=== PATIENT | male | born 1935 | race Caucasian/White ===

== ENCOUNTER 2017-08-29 12:36 | Emergency (ER) | payer MEDICARE, BC ==
[2017-08-29] MEDS ORDERED: ASPIRIN 325 MG TABLET PO ONE (12:52)
[2017-08-29] MEDS ORDERED: DILTIAZEM 25MG/5ML VIAL IV ONE (13:01)
[2017-08-29 13:08] LABS: BASO % 0.6 % (0-6); EOS % 1.3 % (0-6); GRAN % 74.3 % (47-80); HEMATOCRIT 33.6 % (42.0-52.0); HEMOGLOBIN 11.2 gm/dl (14.0-18.0); LYMPH % 11.4 % (16-45); MEAN CELL VOLUME 93.1 fl (81-97); MEAN CORPUSCULAR HGB CONC 33.3 g/dl (32-36); MEAN PLATELET VOLUME 11.2 fl (7.4-10.4); MONO % 12.4 % (0-9); PLATELET COUNT 274 K/uL (130-400); RED BLOOD COUNT 3.61 M/uL (4.40-5.70); RED CELL DISTRIBUTION WIDTH 14.8 % (11.5-14.5)
--- NOTE | 2017-08-29 13:09 | Emergency Department Record ---
History of Present Illness - General Chief Complaint: Shortness of breath Stated Complaint: SHAKY,SOB Time Seen by Provider: 08/29/17 12:52 Source: Patient, Family, EMS Mode of Arrival: EMS Limitations: No limitations - History of Present Illness Initial Comments: 82 yo male presents with weakness the last few days that is progressing. Today he had a 1pm appointment with his doctor schedules but felt too weak to go to the appointment. He called EMS. He denies and syncope or chest pain. He feels very frail and weak and shaky. EMS noted a variable HR that was tachycardic. No edema. The patient states he has had an irregular HR in the past. He denies and NVD. He has had a decrease in appetite. PCP Amy. Onset/Timin -: Days(s) Quality: Other (weakness) Consistency: Constant Improves With: Rest Worsens With: Exertion, Movement Associated Symptoms: Denies other symptoms Treatments Prior to Arrival: None - Related Data Allergies Allergy/AdvReac Type Severity Reaction Status Date / Time infliximab [From REMICADE] Allergy Unknown PT UNSURE Verified 08/29/17 12:38 OF REACTION Penicillins [PENICILLINS] Allergy Unknown HIVES Verified 08/29/17 12:38 Travel Screening - Travel/Exposure Within Last 30 Days Have you traveled within the last 30 days?: No Review of Systems Constitutional: Reports: Malaise, Weakness. Denies: Chills, Fever Eyes: Denies: Eye discharge, Eye pain, Photophobia, Vision change ENT: Denies: Congestion, Throat pain Respiratory: Denies: Cough, Dyspnea, Hemoptysis, Stridor, Wheezes Cardiovascular: Denies: Chest pain, Palpitations, Syncope Endocrine: Reports: Fatigue. Denies: Polydipsia, Polyuria Gastrointestinal: Denies: Abdominal pain, Diarrhea, Nausea, Vomiting Genitourinary: Denies: Dysuria, Frequency, Hematuria Musculoskeletal: Denies: Arthralgia, Back pain, Joint swelling, Myalgia Skin: Denies: Bruising, Change in color, Rash Neurological: Reports: Tremors (feels shaky). Denies: Confusion, Headache, Numbness, Paresthesias, Vertigo, Weakness Psychiatric: Denies: Anxiety Hematological/Lymphatic: Denies: Anemia, Blood Clots, Easy bleeding, Easy bruising, Swollen glands Past Medical History - SOCIAL HISTORY Smoking Status: Former smoker Alcohol Use: None Drug Use: None - RESPIRATORY Hx Respiratory Disorders: No - CARDIOVASCULAR Hx Cardio Disorders: Yes Hx Edema: Yes (HUMBERTO LOWER LEGS) Hx Hypertension: Yes Hx Irregular Heartbeat: Yes (AFIB) - NEURO Hx Neuro Disorders: No - GI Hx GI Disorders: Yes Hx GI Bleed: Yes - Hx Genitourinary Disorders: Yes Hx Bladder Problem: Yes - ENDOCRINE Hx Endocrine Disorders: No - MUSCULOSKELETAL Hx Musculoskeletal Disorders: Yes Hx Arthritis: Yes - PSYCH Hx Psych Problems: No - HEMATOLOGY/ONCOLOGY Hx Hematology/Oncology Disorders: Yes Hx Cancer: Yes (skin) Hx Chemotherapy: No Hx Radiation Therapy: No Family Medical History Any Significant Family History?: Yes Hx HTN: Father, Brother/Sister Physical Exam - General General Appearance: Alert, Oriented x3, Cooperative, No acute distress Limitations: No limitations - Head Head exam: Atraumatic, Normocephalic, Normal inspection - Eye Eye exam: Normal appearance, PERRL. negative: Conjunctival injection, Scleral icterus - ENT ENT exam: Normal exam, Mucous membranes moist Ear exam: negative: Normal external inspection Nasal Exam: negative: Normal inspection Mouth exam: negative: Normal external inspection Teeth exam: negative: Normal inspection - Neck Neck exam: Normal inspection, Full ROM. negative: Tenderness - Respiratory Respiratory exam: Normal lung sounds bilaterally. negative: Prolonged expiratory, Respiratory distress, Rhonchi, Stridor, Wheezes - Cardiovascular Cardiovascular Exam: Irregular rhythm, Tachycardia. negative: Regular rate, Normal rhythm, Normal heart sounds, Diastolic murmur, Systolic murmur Peripheral Pulses: 2+: Radial (R), Radial (L) - GI/Abdominal GI/Abdominal exam: Soft. negative: Tenderness - Rectal Rectal exam: Deferred - exam: Deferred - Extremities Extremities exam: Pedal edema (trace). negative: Full ROM, Joint swelling, Tenderness - Back Back exam: Reports: Normal inspection, Full ROM. Denies: Muscle spasm, Rash noted, Tenderness - Neurological Neurological exam: Alert, Normal gait, Oriented X3 - Psychiatric Psychiatric exam: Normal affect, Normal mood - Skin Skin exam: Dry, Intact, Normal color, Warm Course Vital Signs 08/29/17 12:40 Temperature 97.6 F Pulse Rate 173 H Respiratory 20 Rate Blood Pressure 147/91 Pulse Ox 98 - Reevaluation(s) Reevaluation #1: EKG 12:56 supraventricular tachycardia, rate 157, axis left, ST lateral depression, intervals QTc 568 08/29/17 13:07 08/29/17 14:25 The labs were reviewed The Troponin is elevated at 0.053 The BNP is elevated at 2997 The KCL is 3.2 The CXR is negative for acute process I SW DR Balderas at [facility] [place] She accepts the patient for transfer for further work up and cardiology consultation The HR is improved at this time to 100-115 The onset is unknown for the atrial fibrillation so Heparin was ordered 08/29/17 14:35 Medical Decision Making - Lab Data Result diagrams: 08/29/17 12:55 08/29/17 12:55 Disposition Disposition: Transfer Clinical Impression: Atrial fibrillation with RVR Disposition: Acute Care Hospital Transfer Transfer To: [facility] [place] Reason For Transfer: atrial fibrillation with RVR Accepting Physician: Andrey Time Discussed w/Accepting Physician: 14:37 Condition: (2) Stable Forms: Patient Portal Access Time of Disposition: 14:37 Quality - Quality Measures Quality Measures: N/A - Blood Pressure Screening Does Patient Have Any of the Following: No Blood Pressure Classification: Hypertensive Reading Systolic Measurement: 147 Diastolic Measurement: 91 Screening for High Blood Pressure: < Pre-Hypertensive BP, F/U Documented > [ G8950] Pre-Hypertensive Follow-up Interventions: Referral to alternative/primary care provider.
[2017-08-29] MEDS ORDERED: DILTIAZEM HCL 125 MG in 0.9 % SODIUM CHLORIDE 100ML 100 ML IV SCH (13:15)
[2017-08-29 13:16] LABS: BLOOD UREA NITROGEN 11 mg/dL (8-23); CREATININE 0.8 mg/dL (0.7-1.2); EST GLOMERULAR FILTRATION RATE > 60 mL/min
[2017-08-29 13:17] LABS: TOTAL PROTEIN 7.5 g/dL (6.6-8.7)
[2017-08-29 13:19] LABS: GLUCOSE,RANDOM 109 mg/dL (74-109)
[2017-08-29 13:21] LABS: INR 0.97; PROTHROMBIN TIME (PATIENT) 10.5 SECONDS (9.5-12.1)
[2017-08-29 13:22] LABS: ALB/GLOB RATIO 0.9 (1.1-1.8); ALBUMIN 3.6 g/dL (4.0-5.0); ALKALINE PHOSPHATASE 69 U/L (40-129); ALT/SGPT 15 U/L (<41); AST/SGOT 29 U/L (10.0-50.0); CREATINE PHOSPHOKINASE 108 U/L (39-308)
[2017-08-29 13:26] LABS: CKMB 5.5 ng/mL (<6.73)
[2017-08-29] MEDS ORDERED: HEPARIN SODIUM 1000 UNIT/1 ML 10ML VIAL IVP ONE (14:24)
[2017-08-29] MEDS ORDERED: SOD CHLOR 0.9% WITH KCL 40MEQ 40 MEQ/1,000 ML IV.SOLN IV SCH (14:30)
[2017-08-29] MEDS ORDERED: HEPARIN SODIUM/D5W 25,000 UNITS/500 ML BAG IV SCH (14:30)
--- NOTE | 2017-08-30 07:38 | RADIOLOGY REPORT ---
EXAM: CHEST, FRONTAL VIEW HISTORY: DIFFICULTY BREATHING. TECHNIQUE: A portable frontal view of the chest was obtained. Comparison: 04/05/15 chest. FINDINGS: Stable cardiomegaly. Atheromatous change of the thoracic aorta. Osteopenia. The lungs are clear. No pneumothorax. IMPRESSION: CARDIOMEGALY. NO ACUTE CARDIOPULMONARY PROCESS. JOB NUMBER: [id number] MTDD
== END 2017-08-29 16:52 | disposition short-term general hospital (02) ==
LOC: ER 12:36
DX: I48.0 Paroxysmal atrial fibrillation (principal); R06.00 Dyspnea, unspecified; R53.1 Weakness; I10 Essential (primary) hypertension; Z87.891 Personal history of nicotine dependence
CPT/HCPCS: 71010; 80053; 82550; 82553; 83880; 84484; 85025; 85610; 85730; 93005; 93010; 96365; 96366; 96375; 99285

== ENCOUNTER 2017-12-27 23:23 | Emergency (ER) | payer MEDICARE, BC ==
[2017-12-27] MEDS ORDERED: TOPICAL LIDOCAINE W/ EPI 5 ML TOP ONE (23:28)
--- NOTE | 2017-12-27 23:38 | Emergency Department Record ---
History of Present Illness - General Chief Complaint: Wound, puncture Stated Complaint: BIT TOUNGE Time Seen by Provider: 12/27/17 23:23 Source: Patient Mode of Arrival: Ambulatory Limitations: No limitations - History of Present Illness Initial Commments: 82 yo male presents to ED for evaluation of an area of bleeding to the right anterior tongue for the past 2 hours, denies specific injury, but has not been able to get the bleeding to stop at home. Patient does take Xarelto for atrial fibrillation resulting in impaired coagulation. Patient also reports worsening pain/stiffness and swelling to the left wrist over the past several days, denies injury, but does report a history of RA and believes he may be having a flare-up of his arthritis symptoms. Onset/Timin -: Hour(s) Location: Other Place: Home Context: Accidental Associated Symptoms: None Treatments Prior to Arrival: Bandage - [place] Coma Scale Eye Response: (4) Open spontaneously Motor Response: (6) Obeys commands Verbal Response: (5) Oriented [place] Total: 15 - Related Data Home Medications Medication Instructions Recorded Confirmed Last Taken Amiodarone HCl [Pacerone] 200 mg PO DAILY 12/27/17 12/27/17 Unknown Folic Acid 1 mg PO DAILY 12/27/17 12/27/17 Unknown Hydralazine HCl 100 mg PO TID 12/27/17 12/27/17 Unknown Latanoprost 0.005% Opth Divya 1 drop OPTH DAILY 12/27/17 12/27/17 Unknown [Xalatan] Rivaroxaban [Xarelto] 20 mg PO QPM 12/27/17 12/27/17 Unknown Previous Rx's Medication Instructions Recorded Prednisone [Prednisone 10Mg] 10 mg PO DAILY #15 tab 12/28/17 Allergies Allergy/AdvReac Type Severity Reaction Status Date / Time infliximab [From REMICADE] Allergy Unknown PT UNSURE Verified 08/29/17 12:38 OF REACTION Penicillins [PENICILLINS] Allergy Unknown HIVES Verified 08/29/17 12:38 Travel Screening - Travel/Exposure Within Last 30 Days Have you traveled within the last 30 days?: No - Travel Symptoms Symptom Screening: None Review of Systems Constitutional: Denies: Chills, Fever, Malaise, Night sweats Eyes: Denies: Eye discharge, Eye pain ENT: Reports: Other (Tongue injury). Denies: Congestion, Ear pain, Epistaxis Respiratory: Denies: Cough, Dyspnea Cardiovascular: Denies: Chest pain, Dyspnea on exertion Endocrine: Denies: Fatigue, Heat or cold intolerance Gastrointestinal: Denies: Abdominal pain, Vomiting Genitourinary: Denies: Incontinence, Retention Musculoskeletal: Denies: Arthralgia, Back pain, Gout, Joint swelling Skin: Denies: Bruising, Change in color Neurological: Denies: Abnormal gait, Confusion, Headache, Seizure Psychiatric: Denies: Anxiety Hematological/Lymphatic: Reports: Easy bleeding, Easy bruising. Denies: Anemia , Blood Clots Past Medical History - SOCIAL HISTORY Smoking Status: Former smoker - RESPIRATORY Hx Respiratory Disorders: No - CARDIOVASCULAR Hx Cardio Disorders: Yes Hx Edema: Yes (HUMBERTO LOWER LEGS) Hx Hypertension: Yes Hx Irregular Heartbeat: Yes (AFIB) - NEURO Hx Neuro Disorders: No - GI Hx GI Disorders: Yes Hx GI Bleed: Yes - Hx Genitourinary Disorders: Yes Hx Bladder Problem: Yes - ENDOCRINE Hx Endocrine Disorders: Yes Hx Thyroid Disease: Yes - MUSCULOSKELETAL Hx Musculoskeletal Disorders: Yes Hx Arthritis: Yes - PSYCH Hx Psych Problems: No - HEMATOLOGY/ONCOLOGY Hx Hematology/Oncology Disorders: Yes Hx Cancer: Yes (skin) Hx Chemotherapy: No Hx Radiation Therapy: No Family Medical History Any Significant Family History?: Yes Hx HTN: Father, Brother/Sister Physical Exam - General General Appearance: Alert, Oriented x3, Cooperative, Mild distress Limitations: No limitations - Head Head exam: Atraumatic, Normocephalic, Normal inspection Head exam detail: negative: Abrasion, Contusion, Villeda's sign, General tenderness, Hematoma, Laceration - Eye Eye exam: Normal appearance. negative: Conjunctival injection, Periorbital swelling, Periorbital tenderness, Scleral icterus - ENT Ear exam: negative: Auricular hematoma, Auricular trauma Nasal Exam: negative: Active bleeding, Discharge, Dried blood, Foreign body Mouth exam: Other (Very small area of bleeding to the right anterior tongue, no laceration is present.). negative: Drooling, Laceration, Tongue elevation, Tongue normal - Neck Neck exam: Normal inspection. negative: Meningismus, Tenderness - Respiratory Respiratory exam: Normal lung sounds bilaterally. negative: Rales, Respiratory distress, Rhonchi, Stridor - Cardiovascular Cardiovascular Exam: Regular rate, Normal rhythm, Normal heart sounds - GI/Abdominal GI/Abdominal exam: Soft. negative: Rebound, Rigid, Tenderness - Rectal Rectal exam: Deferred - exam: Deferred - Extremities Extremities exam: Tenderness (Swelling and decreased AROM to the left wrist on examination, strong distal raidal pulse, compartments are soft on examination.) . negative: Calf tenderness, Pedal edema - Back Back exam: Denies: CVA tenderness (R), CVA tenderness (L) - Neurological Neurological exam: Alert, Normal gait, Oriented X3 - Psychiatric Psychiatric exam: Normal affect, Normal mood - Skin Skin exam: Normal color. negative: Abrasion Type of lesion: negative: abrasion Course Vital Signs 12/27/17 23:25 Pulse Rate 68 Respiratory 16 Rate Blood Pressure 159/80 Pulse Ox 97 - Reevaluation(s) Reevaluation #1: 12/27/17 23:58 Have attempted TLE soaked gauze with direct pressure as well as Silver nitrate cautery to stop bleeding without success, currently have thrombi-pad with direct pressure applied to stop the patient's bleeding. Will reassess his bleeding following radiographs. Reevaluation #2: 12/28/17 00:50 Patient reassessed, bleeding has now stopped. Patient reports that prednisone has improved his symptoms of arthritis previously, will prescribe low-dose prednisone for his symptoms. Disposition Disposition: Discharge Clinical Impression: Arthritis, wrist Laceration of tongue Qualifiers: Encounter type: initial encounter Qualified Code(s): S01.512A - Laceration without foreign body of oral cavity, initial encounter Disposition: Home, Self-Care Condition: (2) Stable Instructions: Rheumatoid Arthritis (ED) Additional Instructions: Return to ED if your symptoms worsen or if you have any concerns. Prednisone as directed. Follow-up with your family doctor in 3-5 days as directed. Prescriptions: Prednisone [Prednisone 10Mg] 10 mg PO DAILY #15 tab Forms: Patient Portal Access Time of Disposition: 00:53 Quality - Quality Measures Quality Measures: N/A - Blood Pressure Screening Does Patient Have Any of the Following: No Blood Pressure Classification: Pre-Hypertensive BP Reading Systolic Measurement: 159 Diastolic Measurement: 80 Screening for High Blood Pressure: < Pre-Hypertensive BP, F/U Documented > [ G8950] Pre-Hypertensive Follow-up Interventions: Referral to alternative/primary care provider.
[2017-12-28] MEDS ORDERED: TRANEXAMIC ACID 1,000 MG in 0.9 % SODIUM CHLORIDE 100ML 100 ML TOP ONE (01:05)
[2017-12-28] MEDS ORDERED: THROMBIN/GELATIN FOAM HEMOSTAT (THROMBI-GEL) TP ONE (01:05)
--- NOTE | 2017-12-29 15:56 | RADIOLOGY REPORT ---
DATE: 12/28/2017. EXAM: LEFT WRIST. HISTORY: Pain. TECHNIQUE: Three views of the left wrist. COMPARISON: None. ENCOUNTER: Initial. FINDINGS: Osteopenia. Negative for acute fracture or dislocation. Old fracture deformity of the distal radial metaphysis. Degenerative changes throughout the wrist and hand. Well-corticated ossific density near the ulnar styloid likely reflects old injury. Diffuse soft tissue swelling. IMPRESSION: OLD FRACTURE DEFORMITIES OF THE DISTAL RADIUS AND ULNAR STYLOID. DIFFUSE DEGENERATIVE CHANGE. SOFT TISSUE SWELLING. JOB NUMBER: [id number] [facility]
== END 2017-12-28 01:05 | disposition home or self-care (01) ==
LOC: ER 23:23
DX: S01.512A Laceration without foreign body of oral cavity, initial encounter (principal); M19.032 Primary osteoarthritis, left wrist; I48.91 Unspecified atrial fibrillation; M06.9 Rheumatoid arthritis, unspecified; I10 Essential (primary) hypertension; Z79.01 Long term (current) use of anticoagulants; Z87.891 Personal history of nicotine dependence; W22.8XXA Striking against or struck by other objects, initial encounter; Y92.009 Unspecified place in unspecified non-institutional (private) residence as the place of occurrence of the external cause
CPT/HCPCS: 99283; 99284

== ENCOUNTER 2018-02-10 17:31 | Inpatient (IN) | payer MEDICARE, BC ==
[2018-02-10 19:14] LABS: ABO GROUP A; ANTIBODY SCREEN NEGATIVE (NEGATIVE); RH TYPE POSITIVE
[2018-02-10 19:49] LABS: FERRITIN 50.01 ng/mL (30-400)
[2018-02-10] MEDS ORDERED: 0.9 % SODIUM CHLORIDE 1000ML 1,000 ML IV PRN (19:51)
[2018-02-10] MEDS ORDERED: ACETAMINOPHEN 325 MG TAB PO PRN (19:51)
[2018-02-10] MEDS: TAMSULOSIN HCL 0.4 MG CAP.ER.24H PO SCH (23:18)
[2018-02-10] MEDS: HYDRALAZINE HCL 25 MG TABLET PO SCH (23:23)
[2018-02-10] MEDS: METOPROLOL TART 50 MG TABLET PO SCH (23:23)
[2018-02-10] MEDS ORDERED: LATANOPROST 0.005% OPTH SOLUTION 2.5ML BOTTLE OPTH ONE (23:25)
[2018-02-10 23:39] LABS: IMMED. SPIN CROSSMATCH COMPATIBLE
[2018-02-10 23:40] LABS: IMMED. SPIN CROSSMATCH COMPATIBLE
[2018-02-11] MEDS: PREDNISONE 5 MG TAB PO SCH (07:48)
[2018-02-11] MEDS: PANTOPRAZOLE SODIUM 40 MG TABLET PO SCH (07:48)
[2018-02-11 07:56] LABS: BASO % 0.4 % (0-6); EOS % 2.3 % (0-6); GRAN % 68.1 % (47-80); HEMATOCRIT 19.6 % (42.0-52.0); LYMPH % 14.8 % (16-45); MEAN CELL VOLUME 95.1 fl (81-97); MEAN CORPUSCULAR HGB CONC 31.6 g/dl (32-36); MEAN PLATELET VOLUME 9.8 fl (7.4-10.4); MONO % 14.4 % (0-9); PLATELET COUNT 269 K/uL (130-400); RED BLOOD COUNT 2.06 M/uL (4.40-5.70); RED CELL DISTRIBUTION WIDTH 18.9 % (11.5-14.5); WHITE BLOOD COUNT W/O DIFF 5.3 K/uL (4.2-12.2)
[2018-02-11] MEDS ORDERED: PREDNISONE 10 MG TAB PO SCH ×3 (08:00→10:00)
[2018-02-11 08:23] LABS: HEMOGLOBIN 6.2 gm/dl (14.0-18.0)
[2018-02-11] MEDS: POTASSIUM CHLORIDE 20 MEQ TABLET PO SCH (09:38)
[2018-02-11] MEDS: FOLIC ACID 1 MG TABLET PO SCH (09:38)
[2018-02-11] MEDS: HYDRALAZINE HCL 25 MG TABLET PO SCH ×3 (09:38→23:07)
[2018-02-11] MEDS: FUROSEMIDE 40 MG TABLET PO SCH (09:39)
[2018-02-11] MEDS: METOPROLOL TART 50 MG TABLET PO SCH ×2 (09:39→23:06)
[2018-02-11] MEDS: AMIODARONE HCL 200 MG TABLET PO SCH (09:39)
[2018-02-11] MEDS: LOSARTAN POTASSIUM 100 MG TABLET PO SCH (09:39)
[2018-02-11] MEDS: AMLODIPINE BESYLATE 5MG TAB PO SCH (09:40)
[2018-02-11] MEDS: LEVOTHYROXINE SODIUM 25 MCG TABLET PO SCH (09:41)
[2018-02-11] MEDS ORDERED: LATANOPROST 0.005% OPTH SOLUTION 2.5ML BOTTLE OPTH SCH ×2 (10:00→22:00)
[2018-02-11 10:14] LABS: IMMED. SPIN CROSSMATCH COMPATIBLE
--- NOTE | 2018-02-11 12:11 | History and Physical Report ---
DATE: 02/10/2018 CHIEF COMPLAINT: Anemia, short of breath. HISTORY OF PRESENT ILLNESS: This 82-year-old male presented to my office today after a fall yesterday. EMS was called. They helped him get up. He said he had bruising on his elbow and his wrist, which I saw in the office. He was evaluated in the office by me. He said he was not short of breath talking to him. I sent him over for x-rays of his elbow and wrist and he had outpatient lab orders by Dr. Delgado to do also. CBC, hemoglobin came back at 4.9. Dr. Delgado called the patient and told him to come to the hospital. I called the patient and told him to be a direct admit. He was admitted to the hospital for anemia, GI bleed, and for blood transfusions. The patient states that he did have dark stools a couple of days ago. 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 MEDICATIONS: 1. Flomax 0.4 mg daily. 2. Lasix 40 mg a day. 3. Levothyroxine 25 mcg a day. 4. Xarelto 20 mg a day. 5. Amiodarone 200 mg a day. 6. Losartan 100 mg a day. 7. Metoprolol tartrate 50 mg b.i.d. 8. Potassium chloride 20 mEq daily. 9. Amlodipine 10 mg daily. 10. Folic acid 1 mg a day. 11. Hydralazine 100 mg t.i.d. 12. Omeprazole 20 mg a day. 13. Xalatan 0.005% drops once a day both eyes. 14. Aspirin 81 mg daily. 15. Vitamin D 1000 units a day. ALLERGIES: PENICILLIN, INFLIXIMAB. FAMILY/PSYCHOSOCIAL HISTORY: Unremarkable. Father and mother had cancer. Hypertension in the father, brother, and sister. Former smoker of cigarettes. He quit many years ago. No alcohol or drug use. REVIEW OF SYSTEMS: HEENT: No upper respiratory infection symptoms, cough, cold, or congestion. Cardiovascular: No chest pain, palpitations, or arrhythmia. Respiratory: Short of breath with exertion but not at rest. Gastrointestinal: No nausea, vomiting, diarrhea, black stools, or bloody stools. He did say he had dark stools yesterday. Genitourinary: No dysuria, hematuria, frequency, or burning on urination. Musculoskeletal: He has arthritis in his hands with deformity, rheumatoid arthritis. Neurological: No CVA, paralysis, or paresthesias. Endocrine: No diabetes or thyroid disease. Integument: No rash, ulcers, change in moles, or yellow skin. PHYSICAL EXAMINATION: VITALS: Height 5 feet 11 inches, weight 231 pounds. Temperature 98.8, pulse 71, blood pressure 130/85, respiratory rate 18, pulse ox 96% on room air. HEENT: Pupils are equal, round, and reactive to light and accommodation. Extraocular muscles are intact. Throat is clear. Nose is clear. Tympanic membranes are [place]. NECK: Supple. No jugular venous distention. No hepatojugular reflux. Carotid pulses are present and equal bilaterally. Thyroid is smooth. CARDIOVASCULAR: Irregular rate and rhythm and chronic atrial fibrillation. RESPIRATORY: Breath sounds equal bilaterally. ABDOMEN: Soft, nontender. No hepatosplenomegaly, no masses, no tenderness. Bowel sounds are active. No bruits. EXTREMITIES: There is edema of the ankles and legs which is chronic for him about 2+ bilaterally, right slightly worse than the left. BREASTS: Normal male breasts. RECTAL: Brown stool. Hemoccult positive. GENITALIA: Normal male genitalia. NEUROLOGIC: Cranial nerves II-XII intact. No gross defects. Sensation normal, strength normal. Deep tendon reflexes equal bilaterally with Babinski negative. MENTAL STATUS: Alert and oriented x3. IMPRESSION: 1. Anemia. Hemoglobin is 4.9. 2. GI bleed. 3. Chronic atrial fibrillation, on Xarelto. 4. Rheumatoid arthritis. 5. Benign prostatic hyperplasia. 6. Hypothyroidism. 7. Glaucoma. PLAN: Transfuse 2 units of blood. Stop the Xarelto and aspirin. Serial hemoglobin. INPATIENT CERTIFICATION: Admit to inpatient care. Based on my medical assessment, after consideration of patient's risk factors, age, comorbidities, and patient's presenting symptoms and acuity, I expect that this patient will remain in the hospital greater than or equal to 2 midnights and that the services needed warrant inpatient care. Specific patient risk factors anemia, GI bleed, and short of breath. Estimated length of stay is 3 days. The patient may reasonably be expected to be discharged or transferred to a hospital within 96 hours after admission to [facility]. Services needed are transfusion of blood and further evaluation. I certify that my determination is in accordance with my understanding of Medicare requirements for reasonable and necessary inpatient services. TOÑO
[2018-02-11 12:50] LABS: URINE APPEARANCE CLEAR; URINE BILIRUBIN NEGATIVE (NEGATIVE); URINE BLOOD NEGATIVE (NEGATIVE); URINE COLOR YELLOW; URINE GLUCOSE (UA) NEGATIVE (NEGATIVE); URINE KETONE NEGATIVE (NEGATIVE); URINE LEUKOCYTE ESTERASE TRACE (NEGATIVE); URINE NITRITE NEGATIVE (NEGATIVE); URINE PROTEIN NEGATIVE (NEGATIVE); URINE UROBILINOGEN 0.2 E.U./dL (0.20 - 1.00)
[2018-02-11 12:58] LABS: URINE BACTERIA 2+; URINE EPITHELIAL CELLS NONE SEEN (FEW); URINE RBC NONE SEEN (NONE SEEN)
[2018-02-11 15:21] LABS: BASO % 0.4 % (0-6); EOS % 0.4 % (0-6); GRAN % 78.1 % (47-80); HEMATOCRIT 22.8 % (42.0-52.0); LYMPH % 7.4 % (16-45); MEAN CELL VOLUME 93.8 fl (81-97); MEAN CORPUSCULAR HEMOGLOBIN 29.6 pg (27-33); MEAN CORPUSCULAR HGB CONC 31.6 g/dl (32-36); MONO % 13.7 % (0-9); PLATELET COUNT 263 K/uL (130-400); RED BLOOD COUNT 2.43 M/uL (4.40-5.70); RED CELL DISTRIBUTION WIDTH 18.5 % (11.5-14.5); WHITE BLOOD COUNT W/O DIFF 5.4 K/uL (4.2-12.2)
[2018-02-11 15:44] LABS: HEMOGLOBIN 7.2 gm/dl (14.0-18.0)
[2018-02-11] MEDS: TAMSULOSIN HCL 0.4 MG CAP.ER.24H PO SCH (23:06)
[2018-02-11 23:10] LABS: HEMATOCRIT 22.9 % (42.0-52.0); HEMOGLOBIN 7.1 gm/dl (14.0-18.0); MEAN CELL VOLUME 94.2 fl (81-97); MEAN CORPUSCULAR HEMOGLOBIN 29.2 pg (27-33); MEAN PLATELET VOLUME 9.8 fl (7.4-10.4); PLATELET COUNT 268 K/uL (130-400); RED BLOOD COUNT 2.43 M/uL (4.40-5.70); RED CELL DISTRIBUTION WIDTH 18.5 % (11.5-14.5); WHITE BLOOD COUNT W/O DIFF 6.5 K/uL (4.2-12.2)
[2018-02-11 23:12] LABS: HYPOCHROMIA 1+
[2018-02-12] MEDS: LEVOTHYROXINE SODIUM 25 MCG TABLET PO SCH (06:53)
[2018-02-12] MEDS: PANTOPRAZOLE SODIUM 40 MG TABLET PO SCH (06:53)
[2018-02-12] MEDS: PREDNISONE 5 MG TAB PO SCH (07:53)
[2018-02-12 08:03] LABS: BASO % 0.7 % (0-6); EOS % 3.5 % (0-6); GRAN % 69.9 % (47-80); HEMATOCRIT 23.5 % (42.0-52.0); HEMOGLOBIN 7.3 gm/dl (14.0-18.0); LYMPH % 11.4 % (16-45); MEAN CELL VOLUME 94.8 fl (81-97); MEAN CORPUSCULAR HEMOGLOBIN 29.4 pg (27-33); MEAN CORPUSCULAR HGB CONC 31.1 g/dl (32-36); MEAN PLATELET VOLUME 9.9 fl (7.4-10.4); MONO % 14.5 % (0-9); PLATELET COUNT 268 K/uL (130-400); RED BLOOD COUNT 2.48 M/uL (4.40-5.70); RED CELL DISTRIBUTION WIDTH 18.2 % (11.5-14.5); WHITE BLOOD COUNT W/O DIFF 7.1 K/uL (4.2-12.2)
--- NOTE | 2018-02-12 08:11 | Discharge Note ---
VTE H&P Assessment - Risk for VTE Risk for VTE: No Risk Level: Very Low Risk Assessment Date: 02/10/18 Risk Assessment Time: 18:00 VTE Orders Placed or Will Be Placed: No VTE Reason for No Prophylaxis: Not Indicated Discharge Medications - Discharge Medications Prescriptions: Ascorbic Acid [Vitamin C] 1,000 mg PO DAILY #30 tab Ferrous Sulfate [Iron] 325 mg PO DAILY #30 tablet Home Medications: Ambulatory Orders Amlodipine Besylate [Norvasc] 10 mg PO DAILY 04/05/15 [Last Taken 08/29/17] Losartan Potassium [Cozaar] 100 mg PO DAILY 04/05/15 [Last Taken 08/29/17] Metoprolol Tartrate [Lopressor] 50 mg PO BID 04/05/15 [Last Taken 08/29/17] Omeprazole 20 mg PO DAILY 04/05/15 [Last Taken 08/29/17] Potassium Chloride [Klor-Con] 20 meq PO DAILY 04/05/15 [Last Taken 08/29/17] Docusate Sodium [Colace] 250 mg PO QD cap 09/22/15 [Last Taken 08/29/17] Fluticasone Propionate [Flonase Allergy Relief] 2 spray NS ASDIR 09/22/15 [Last Taken 08/29/17] Tamsulosin HCl 0.4 mg PO QD cap 05/03/17 [Last Taken 08/29/17] Amiodarone HCl [Pacerone] 200 mg PO DAILY 12/27/17 [Last Taken Unknown] Folic Acid 1 mg PO DAILY 12/27/17 [Last Taken Unknown] Hydralazine HCl 100 mg PO TID 12/27/17 [Last Taken Unknown] Latanoprost 0.005% Opth Divya [Xalatan] 1 drop OPTH DAILY 12/27/17 [Last Taken Unknown] Ascorbic Acid [Vitamin C] 1,000 mg PO DAILY #30 tab 02/12/18 [Last Taken Unknown ] Ferrous Sulfate [Iron] 325 mg PO DAILY #30 tablet 02/12/18 [Last Taken Unknown] Furosemide [Lasix] 40 mg PO DAILY tablet 02/12/18 [Last Taken Unknown] Levothyroxine Sodium [Synthroid] 25 mcg PO DAILYTHY tab 02/12/18 [Last Taken Unknown] Prednisone [Prednisone 5Mg] 5 mg PO DAILYWM tab 02/12/18 [Last Taken Unknown] Discharge Note - Date Date of Discharge Note: 02/12/18 Disposition: Home, Self-Care Condition: (1) Good Additional Instructions: follow up with Dr. Reyes on February 17 stay off xarelto for one week stay off asa for one week New medication iron one a day vit c 1000 mg one a day Referrals: Azar Reyes D.O. [Primary Care Provider] - Activity at Discharge: Increase Activity as Tolerated
[2018-02-12] MEDS: FOLIC ACID 1 MG TABLET PO SCH (09:54)
[2018-02-12] MEDS: METOPROLOL TART 50 MG TABLET PO SCH (09:54)
[2018-02-12] MEDS: AMLODIPINE BESYLATE 5MG TAB PO SCH (09:55)
[2018-02-12] MEDS: HYDRALAZINE HCL 25 MG TABLET PO SCH (09:55)
[2018-02-12] MEDS: LOSARTAN POTASSIUM 100 MG TABLET PO SCH (09:56)
[2018-02-12] MEDS: FUROSEMIDE 40 MG TABLET PO SCH (09:56)
[2018-02-12] MEDS: AMIODARONE HCL 200 MG TABLET PO SCH (09:56)
[2018-02-12] MEDS: POTASSIUM CHLORIDE 20 MEQ TABLET PO SCH (09:59)
[2018-02-12] MEDS ORDERED: ASCORBIC ACID 500 MG TAB PO SCH (10:00)
[2018-02-12] MEDS ORDERED: FERROUS SULFATE 325 MG TAB PO SCH (10:00)
--- NOTE | 2018-02-12 12:40 | Discharge Summary ---
DATE: 02/12/2018 DISCHARGE DIAGNOSES: 1. GI bleed. 2. Anemia secondary to above. Discharge hemoglobin 7.1. 3. Atrial fibrillation, on Xarelto, stopped and aspirin stopped. 4. Rheumatoid arthritis. 5. Hypothyroidism. 6. Benign prostatic hyperplasia. 7. Glaucoma. ATTENDING PHYSICIAN: Azar Reyes DO REASON FOR HOSPITALIZATION: This 82-year-old male presented to the office after a fall yesterday. Actually, the day of admission he fell down. He came to the office. EMS was called at his home. They stood him up and he came in on his own to the office. He had bruising of his elbow and his wrist. After my evaluation, he went to the hospital. He had blood drawn and x-rays ordered. Hemoglobin came back at 4.9. He was called up and admitted to the hospital as a direct admit for blood transfusion and further evaluation. He was Hemoccult positive on stools but brown stool. SIGNIFICANT FINDINGS: Hemoccult-positive stool. Urine showing 2+ bacteria, 3-5 WBCs but urinary tract infection symptoms. Initial hemoglobin was 4.9. After 2 units of blood, it went up to 6.2. With the third unit, it went up to 7.2. He has remained at 7. His last hemoglobin was 7.1. He has had 2 stable hemoglobins. He had no blood in his stools observed and he has not vomited any blood. He is eating well. His iron is low at 22, total iron binding capacity 249, percent saturation 8%, ferritin 50. Started on iron therapy and vitamin C. THERAPY PROVIDED: Transfused with 3 units of blood. GI is not available this week, so we will have him worked up as an outpatient. He is also placed on omeprazole. HOSPITAL COURSE: He has been stable. He is improved. He is getting a little more energy. CONDITION ON DISCHARGE: Improved. DISCHARGE INSTRUCTIONS: Follow up with Dr. Reyes on 02/17/2018. New medication of ferrous sulfate 325 once a day, vitamin C 1000 mg daily. Stop the aspirin and Xarelto for 1 week. We will restart it up next week. We will continue his home medications of Flomax 0.4 mg a day, Lasix 40 mg a day, levothyroxine 25 mcg a day, amiodarone 200 mg a day, losartan 100 mg a day, metoprolol tartrate 50 mg b.i.d., potassium chloride 20 mEq a day, amlodipine 10 mg a day, folic acid 1 mg a day, hydralazine 100 mg t.i.d., omeprazole 20 mg a day, Xalatan drops both eyes daily, vitamin D 1000 units a day. MTDD
== END 2018-02-12 11:06 | disposition home or self-care (01) | DRG 379 ==
LOC: MEDSURG 17:31 → OBSVTOIN 19:00
PROVIDERS: ADMIT Emergency Medicine; ATTEND Emergency Medicine
DX: K92.2 Gastrointestinal hemorrhage, unspecified (principal); D64.9 Anemia, unspecified; I48.2 Chronic atrial fibrillation; Z79.01 Long term (current) use of anticoagulants; I10 Essential (primary) hypertension; E03.9 Hypothyroidism, unspecified; M06.9 Rheumatoid arthritis, unspecified; N40.0 Benign prostatic hyperplasia without lower urinary tract symptoms; H40.9 Unspecified glaucoma; Z87.891 Personal history of nicotine dependence
CPT/HCPCS: 80048; 80053; 81001; 82272; 82310; 82728; 83540; 83550; 84443; 85025; 85027; 86850; 86900; 86901; J7512

== ENCOUNTER 2018-03-06 11:22 | Day surgery (SDC) | payer MEDICARE, BC ==
[2018-03-06] MEDS ORDERED: PROPOFOL 10 MG/ML VIAL IV ONE (11:23)
[2018-03-06] MEDS ORDERED: LIDOCAINE 2% MDV (20MG/ML) 20ML VIAL IV ONE (11:23)
--- NOTE | 2018-03-07 15:30 | Operative Note ---
DATE OF SURGERY: 03/06/2018 REFERRING PROVIDER: Azar Reyes DO PREOPERATIVE DIAGNOSIS: Iron deficiency anemia of unclear origin. POSTOPERATIVE DIAGNOSES: 1. Small hiatal hernia. 2. Zqqmyiyi-so-zlfgaw sigmoid diverticulosis. 3. Colon polyps. OPERATION: 1. ESOPHAGOGASTRODUODENOSCOPY. 2. COLONOSCOPY with cold snare x 3. PROCEDURE: After informed consent was obtained, the patient was placed in the left lateral decubitus position in the endoscopy suite, sedated and monitored by the Department of Anesthesia. Once sedated, a well-lubricated DOW029 gastroscope was placed in the posterior oropharynx and advanced to the proximal, mid and distal esophagus. The esophagus in its length was unremarkable. There was a small hiatal hernia. No Danish's lines were noted. The subdiaphragmatic stomach, including the body, antrum, pylorus, duodenal bulb and sweep were all unremarkable. J-turn views of the proximal and mid stomach demonstrated scattered polyps that were small in size. No bleeding sites were noted. The endoscope was then straightened and retracted from the patient with no new findings noted. Digital rectal exam was unremarkable. A well-lubricated PCF-190 colonoscope was inserted into the rectum and advanced to the cecum. The preparation quality was good to excellent. The cecum demonstrated [id number]-qodzoi diverticular changes and angulation. The endoscope as gently advanced to the cecum. The cecum and cecal bulb were unremarkable. The preparation quality was good. The ileocecal valve, however, revealed 2 polyps, 1 quite sessile, the other semi-sessile. Each removed with a cold snare. Minimal bleeding was noted at the site. The polyps were retrieved. The remainder of the ascending colon and transverse colon were unremarkable. The descending colon revealed a 4-5 mm sessile polyp removed with a cold snare. There were no sigmoid colon polyps. The rectum was unremarkable in forward and in J-turn views. The endoscope was straightened, the rectal ampulla deflated and the endoscope was removed. RECOMMENDATIONS: Patient should resume his medications and diet and resume his iron and vitamin C. The question is to whether he should undergo further small-bowel evaluation such as a capsule test. I will have him undergo Hemoccult testing. If positive, a small-bowel capsule would be suggested. If negative, perhaps a small-bowel x-ray would be indicated. As always, thank you for allowing me to participate in the health care of your patients. CC: DO TOÑO Fernandez
== END 2018-03-06 13:25 | disposition home or self-care (01) ==
LOC: HOP 11:22
PROVIDERS: ATTEND Internal Medicine Gastroenterology
DX: D50.9 Iron deficiency anemia, unspecified (principal); K57.30 Diverticulosis of large intestine without perforation or abscess without bleeding; D12.4 Benign neoplasm of descending colon; K44.9 Diaphragmatic hernia without obstruction or gangrene; K31.7 Polyp of stomach and duodenum; K21.9 Gastro-esophageal reflux disease without esophagitis; I10 Essential (primary) hypertension

== ENCOUNTER 2018-12-11 08:27 | Day surgery (SDC) | payer MEDICARE, BC ==
[2018-12-11] MEDS ORDERED: PROPOFOL 10 MG/ML VIAL IV ONE (08:28)
[2018-12-11] MEDS ORDERED: MIDAZOLAM HCL 2MG/2ML VIAL IV ONE (08:28)
[2018-12-11] MEDS ORDERED: LIDOCAINE 2% MDV (20MG/ML) 20ML VIAL IV ONE (08:28)
[2018-12-11] MEDS ORDERED: FENTANYL PF 100MCG/2ML VIAL IV ONE (08:28)
[2018-12-11] MEDS ORDERED: RINGERS SOLUTION,LACTATED 300 ML IV ONE (10:31)
--- NOTE | 2018-12-12 07:10 | Operative Note ---
DATE OF SURGERY: 12/11/2018 Surgeon: Emile Black DO PREOPERATIVE DIAGNOSIS: Carpal tunnel syndrome of the left wrist. POSTOPERATIVE DIAGNOSIS: Carpal tunnel syndrome of the left wrist. OPERATION: Decompression of left median nerve at the wrist using 3.5 loop magnification. DESCRIPTION OF PROCEDURE: This 83-year-old male was taken to the operating room and placed in the supine position on the operating room table. A Bakari block was employed to provide anesthesia for his left hand. After prepping and draping, we made an incision in the palm following the hypothenar crease from the level of the base of the webspace of the thumb to the flexor crease of the wrist. Dissection was carried down through the skin and subcutaneous tissue. The palmar fascia was divided in line with the skin incision. We punctured a hole in the flexor retinaculum to expose the contents of the carpal tunnel. An extensive amount of tenosynovial fluid was present and this was suctioned from the wound. This extended all the way down to the flexor tendons as a brownish discoloration of the tenosynovium as well. The patient is known to have rheumatoid disease. With the contents of the carpal tunnel under direct vision, the transverse carpal ligament was transected along its ulnar border to raise the flap on the radial side, and this exposed the entire median nerve under the transverse ligament. The tenosynovial thickening was so thick, we did not dissect out the recurrent motor branch but we stayed along the ulnar side. The tendons themselves actually appeared normal but marked thickening of the tenosynovium was present. A specimen of the tenosynovium was taken and sent to pathology. It was brownish in color with typical consistency of tenosynovium. The synovial fluid was typical of what would appear to be either ganglion or synovial etiology. After copious irrigation, the wound was suctioned and the wound closed with interrupted 6-0 nylon suture. Sterile dressings were applied with plaster of splint immobilization with the wrist in slight dorsiflexion and the thumb in an adducted position. GROSS PATHOLOGY: This patient demonstrated compression of the medial nerve. The median nerve itself appeared to be fairly normal in appearance. However, there was extensive tenosynovitis in the carpal canal with a brownish discoloration of the tenosynovium and a small specimen of that was taken and sent to pathology. CC: DO TOÑO Bae
== END 2018-12-11 11:19 | disposition home or self-care (01) ==
LOC: SUR 08:27
PROVIDERS: ATTEND Orthopaedic Surgery
DX: G56.02 Carpal tunnel syndrome, left upper limb (principal); I10 Essential (primary) hypertension; I48.91 Unspecified atrial fibrillation; Z79.01 Long term (current) use of anticoagulants; N40.0 Benign prostatic hyperplasia without lower urinary tract symptoms; M06.9 Rheumatoid arthritis, unspecified
CPT/HCPCS: 64721; 01810; 88305; J3010; J7120